=== PATIENT | male | born 1950 | race Caucasian/White ===

== ENCOUNTER 2018-04-21 21:11 | Emergency (ER) | payer MEDICARE, OTHER ==
[2018-04-21 21:19] VITALS: BP 157/102
--- NOTE | 2018-04-21 21:22 | ED Physician Documentation ---
PD HPI HEAD INJURY - Stated complaint Stated Complaint: FACIAL LAC - Chief complaint Chief Complaint: Laceration - History obtained from History obtained from: Patient - History of Present Illness Mechanism of head injury: Blow (he was prying a piece of wood with prybar and it slipped and the bar handle struck him in left cheek. No LOC. Has lac that he felt needed sutures.) Where head injury occurred: Home Timing - onset: Today Location of injury: Left, Front (cheek) Associated symptoms: No: LOC, AMS, Nausea / vomiting Similar symptoms before: Has not had sx before Review of Systems GI: denies: Nausea, Vomiting Neurologic: denies: Altered mental status, Headache PD PAST MEDICAL HISTORY - Past Medical History Cardiovascular: None Respiratory: None Neuro: None - Present Medications Home Medications: Ambulatory Orders Medication Instructions Recorded Confirmed Duloxetine HCl [Cymbalta] 1 cap PO DAILY 04/21/18 04/21/18 Methylphenidate HCl [Ritalin] 20 mg PO BID 04/21/18 04/21/18 - Allergies Allergies/Adverse Reactions: Allergies Allergy/AdvReac Type Severity Reaction Status Date / Time No Known Drug Allergies Allergy Verified 04/21/18 21:19 PD ED PE NORMAL - Vitals Vital signs reviewed: Yes - General General: Alert and oriented X 3, No acute distress, Well developed/nourished - HEENT HEENT: PERRL, EOMI, Other (left cheek with 1.5 cm laceration to fatty tissue layer. No FB nor active bleeding. ) - Neck Neck: Supple, no meningeal sign - Derm Derm: Normal color, Warm and dry - Neuro Neuro: Alert and oriented X 3, No motor deficit, Normal speech Results - Vitals Vitals: Vital Signs - 24 hr 04/21/18 21:16 Temperature 36.2 C L Heart Rate 95 Respiratory 16 Rate Blood Pressure 157/102 H O2 Saturation 95 Oxygen O2 Source Room air Procedures - Laceration (location) left cheek face Length in cm: 1.5 Wound type: Linear, Into subcut fat, Clean Neurovascular status: Sensory intact, Motor intact Anesthesia: Lidocaine 1% with epi Wound Preparation: Irrigated copiously NS Skin layer closure: Nylon, Interrupted, Size #-0 - enter number (6), Sutures - enter # (4) Other: Patient tolerated well, No complications, Neurovascular intact, Tetanus UTD Complexity: Simple Departure - Departure Disposition: 01 Home, Self Care Clinical Impression: Facial laceration Qualifiers: Encounter type: initial encounter Qualified Code(s): S01.81XA - Laceration without foreign body of other part of head, initial encounter Condition: Stable Record reviewed to determine appropriate education?: Yes Instructions: ED Laceration Facial Sutr Tape Comments: It is okay to wash and shower. Clean off the wound twice a day with soap and water, or peroxide and water. Apply some antibiotic ointment to it to keep it moist. Also to watch for signs of infection such as purulence, redness or increasing pain. Return to your primary care or the ER at the specified time for suture removal. Suture removal 6 or 7 days.
[2018-04-21] MEDS ORDERED: LIDOCAINE MPF 1%-EPI 1:200000 30 ML VIAL SUBQ STA (21:27)
== END 2018-04-21 22:02 | disposition home or self-care (01) ==
LOC: ED 21:11
DX: S01.412A Laceration without foreign body of left cheek and temporomandibular area, initial encounter (principal); W22.8XXA Striking against or struck by other objects, initial encounter; Y93.H3 Activity, building and construction; Y92.009 Unspecified place in unspecified non-institutional (private) residence as the place of occurrence of the external cause
CPT/HCPCS: 12011; 99282; 99283

== ENCOUNTER 2018-04-27 20:34 | Emergency (ER) | payer MEDICARE, OTHER ==
[2018-04-27 20:42] VITALS: BP 147/96
[2018-04-27] MEDS ORDERED: BACITRACIN OINT TOP STA (20:52)
--- NOTE | 2018-04-27 20:54 | ED Physician Documentation ---
PD HPI WOUND RECHECK - Stated complaint Stated Complaint: SUTURE REMOVAL - Chief complaint Chief Complaint: General - Histroy obtained from History obtained from: Patient - History of Present Illness Location: Face Timing - onset: How many days ago (5) Pain level max: 0 Pain level now: 0 Associated symptoms: No: Fever, Redness, Swelling, Drainage, Pain Recently seen: Emergency Dept (for suture placement) Review of Systems Constitutional: denies: Fever PD PAST MEDICAL HISTORY - Past Medical History Past Medical History: Yes Cardiovascular: None Respiratory: None Neuro: None Endocrine/Autoimmune: None GI: Other : None HEENT: None Psych: Depression, Anxiety Musculoskeletal: None Derm: None - Past Surgical History Past Surgical History: Yes General: Other - Present Medications Home Medications: Ambulatory Orders Medication Instructions Recorded Confirmed Duloxetine HCl [Cymbalta] 1 cap PO DAILY 04/21/18 04/21/18 Methylphenidate HCl [Ritalin] 20 mg PO BID 04/21/18 04/21/18 - Allergies Allergies/Adverse Reactions: Allergies Allergy/AdvReac Type Severity Reaction Status Date / Time No Known Drug Allergies Allergy Verified 04/27/18 20:41 - Social History Does the pt smoke?: No Smoking Status: Never smoker Does the pt drink ETOH?: Yes Does the pt have substance abuse?: No - Immunizations Immunizations are current?: Yes - POLST Patient has POLST: No PD ED PE NORMAL - Vitals Vital signs reviewed: Yes - General General: Alert and oriented X 3 - HEENT HEENT: Moist mucous membranes, Other (well healed laceration L side of face.) Results - Vitals Vitals: Vital Signs - 24 hr 04/27/18 20:40 Temperature 37 C Heart Rate 79 Respiratory 18 Rate Blood Pressure 147/96 H O2 Saturation 94 Oxygen O2 Source Room air PD MEDICAL DECISION MAKING - ED course Complexity details: considered differential, d/w patient ED course: Sutures removed by the nurse at bedside. Laceration is well-healed. No signs of infection. Patient counseled regarding signs and symptoms for which I believe and urgent re-evaluation would be necessary. Patient with good understanding of and agreement to plan and is comfortable going home at this time This document was made in part using voice recognition software. While efforts are made to proofread this document, sound alike and grammatical errors may occur. Departure - Departure Disposition: 01 Home, Self Care Clinical Impression: Visit for suture removal Condition: Good Instructions: ED Wound Check Sutr Remove No Infec Follow-Up: your,doctor as needed [Other] Comments: Return if you worsen including redness, swelling or drainage from the wound. Discharge Date/Time: 04/27/18 21:04
== END 2018-04-27 21:04 | disposition home or self-care (01) ==
LOC: ED 20:34
DX: Z48.02 Encounter for removal of sutures (principal)
CPT/HCPCS: 99282; A9270

== ENCOUNTER 2018-12-02 23:53 | Emergency (ER) | payer MEDICARE, OTHER ==
[2018-12-03 00:29] VITALS: BP 156/91
--- NOTE | 2018-12-03 01:45 | XRAY Report ---
Reason: swelling, pain, fell of a ladder Procedure Date: 12/03/2018 Accession Number: [id number] / [id number] Procedure: XR - Foot 3 View RT CPT Code: FULL RESULT: EXAM: RIGHT ANKLE RADIOGRAPHY RIGHT FOOT RADIOGRAPHY EXAM DATE: 12/03/2018 01:11 AM. CLINICAL HISTORY: Swelling, pain, fell off a ladder. COMPARISON: FOOT 3 VIEW RT 12/03/2018 1:11 AM. TECHNIQUE: 3 views ankle. 3 views foot FINDINGS: Bones: There is a comminuted calcaneal fracture with decreased calcaneal pitch. Extension into the middle and posterior subtalar joints is noted. Fracture also extends into the calcaneocuboidal joint. Small ossific fragment is seen along the plantar lateral portion of the base of the second metatarsal with extension into the tarsometatarsal joint. Joints: Ankle mortise appears intact on these nonstressed images. Soft Tissues: There is moderate to severe localized soft tissue swelling. IMPRESSION: 1. Comminuted impacted calcaneal fracture with extension into the middle and posterior subtalar joints as well as the calcaneocuboidal joint. 2. Suspect subtle avulsion fracture at the base of the second metatarsal, with equivocal widening of the joint space between the second and third metatarsal base. RADIA
--- NOTE | 2018-12-03 01:45 | XRAY Report ---
Reason: swelling, pain, fell off a ladder. Procedure Date: 12/03/2018 Accession Number: [id number] / [id number] Procedure: XR - Ankle 3 View RT CPT Code: FULL RESULT: EXAM: RIGHT ANKLE RADIOGRAPHY RIGHT FOOT RADIOGRAPHY EXAM DATE: 12/03/2018 01:11 AM. CLINICAL HISTORY: Swelling, pain, fell off a ladder. COMPARISON: FOOT 3 VIEW RT 12/03/2018 1:11 AM. TECHNIQUE: 3 views ankle. 3 views foot FINDINGS: Bones: There is a comminuted calcaneal fracture with decreased calcaneal pitch. Extension into the middle and posterior subtalar joints is noted. Fracture also extends into the calcaneocuboidal joint. Small ossific fragment is seen along the plantar lateral portion of the base of the second metatarsal with extension into the tarsometatarsal joint. Joints: Ankle mortise appears intact on these nonstressed images. Soft Tissues: There is moderate to severe localized soft tissue swelling. IMPRESSION: 1. Comminuted impacted calcaneal fracture with extension into the middle and posterior subtalar joints as well as the calcaneocuboidal joint. 2. Suspect subtle avulsion fracture at the base of the second metatarsal, with equivocal widening of the joint space between the second and third metatarsal base. RADIA
[2018-12-03] MEDS ORDERED: oxyCODONE 5 MG TABLET PO STA (02:16)
--- NOTE | 2018-12-03 02:16 | ED Physician Documentation ---
PD HPI LOWER EXT INJURY - Stated complaint Stated Complaint: FALL OFF LADDER - Chief complaint Chief Complaint: Trauma Ext - History obtained from History obtained from: Patient - History of Present Illness PD HPI LOW EXT INJURY LOCATION: Right, Foot Type of injury: Fall Where injury occurred: Home Timing - onset: Enter time (23:00), Last night Timing - details: Abrupt onset Pain level now: 8 Improved by: Rest Worsened by: Moving, Palpating Associated symptoms: Swelling, Discolored Contributing factors: No: Anticoagulated, Prior ortho surgery Similar symptoms before: Has not had sx before Recently seen: Not recently seen - Additional information Additional information: fell off ladder last night approximately 23:00. He says he was approximately 6 feet up the ladder working on overhead beams, leaned too far to one side and this resulted in the fall. c/o right heel pain and swelling that has steadily increased since the injury; he has no other c/o (no other injuries, and specifically denies back pain, head injury, headache, other extremity pain or injury) Review of Systems Skin: reports: Reviewed and negative Musculoskeletal: reports: Extremity pain (right heel), Extremity swelling (right heel), Pain with weight bearing. denies: Neck pain, Back pain Neurologic: denies: Focal weakness, Numbness, Headache, Head injury, LOC PD PAST MEDICAL HISTORY - Past Medical History Past Medical History: Yes Cardiovascular: None, Hypertension, High cholesterol Respiratory: None Neuro: None Endocrine/Autoimmune: None GI: Other : None HEENT: None Psych: Depression, Anxiety Musculoskeletal: None Derm: None - Past Surgical History Past Surgical History: Yes General: Other - Present Medications Home Medications: Ambulatory Orders Medication Instructions Recorded Confirmed Duloxetine HCl [Cymbalta] 1 cap PO DAILY 04/21/18 12/03/18 Methylphenidate HCl [Ritalin] 20 mg PO BID 04/21/18 12/03/18 Atorvastatin [Lipitor] 10 mg PO DAILY 12/03/18 12/03/18 Lisinopril 5 mg PO DAILY 12/03/18 12/03/18 Omeprazole 20 mg PO DAILY 12/03/18 12/03/18 Oxycodone HCl/Acetaminophen 1 - 2 each PO Q6H PRN #20 tablet 12/03/18 [Percocet 5-325 mg Tablet] - Allergies Allergies/Adverse Reactions: Allergies Allergy/AdvReac Type Severity Reaction Status Date / Time No Known Drug Allergies Allergy Verified 12/03/18 00:28 - Social History Does the pt smoke?: No Smoking Status: Never smoker Does the pt drink ETOH?: Yes Does the pt have substance abuse?: No - Immunizations Immunizations are current?: Yes - POLST Patient has POLST: No PD ED PE NORMAL - Vitals Vital signs reviewed: Yes - General General: Alert and oriented X 3, No acute distress, Well developed/nourished - HEENT HEENT: Atraumatic - Cardiac Cardiac: RRR, No murmur - Respiratory Respiratory: No respiratory distress, Clear bilaterally - Abdomen Abdomen: Soft, Non tender - Back Back: No spinal TTP - Neuro Neuro: Alert and oriented X 3 Eye Opening: Spontaneous Motor: Obeys Commands Verbal: Oriented GCS Score: 15 PD ED PE EXPANDED - Extremities Extremities: Tenderness, Swelling, Bruising Feet visual: 1 - bruising, swelling, tenderness Results - Vitals Vitals: Oxygen O2 Source Room air - Rads (name of study) right ankle xrays Radiology: Prelim report reviewed, See rad report right foot xray Radiology: Prelim report reviewed, See rad report Procedures - Splint (location) Lower extremity right Splint applied by: Tech Type of splint: Fiberglass, Posterior, Stirrup Other: Patient tolerated well, No complications, Neurovascular intact, Other (patient says he already has crutches at home. After placement of splint, patient had increased discomfort at lateral aspect of the foot which rapidly improved with loosening of the HARSHA wrap) PD MEDICAL DECISION MAKING - ED course Complexity details: reviewed results, re-evaluated patient, considered differential, d/w patient ED course: D/W Dr. Smith (on-call orthopedic surgery), including HPI, exam findings, and xray results. He says patient can be splinted and discharged and reevaluated in outpatient setting. Patient is comfortable with this plan. Patient was in no obvious painful distress during ED visit despite xray findings (comminuted calcaneal fracture), and reported adequate pain relief with PO oxycodone Departure - Departure Disposition: 01 Home, Self Care Clinical Impression: Calcaneal fracture Qualifiers: Encounter type: initial encounter Calcaneus location: unspecified portion of calcaneus Fracture type: closed Fracture alignment: nondisplaced Laterality: right Qualified Code(s): S92.001A - Unspecified fracture of right calcaneus, initial encounter for closed fracture Condition: Good Instructions: ED Crutch Walking, ED Fx Foot Follow-Up: Blair Smith MD [Provider Admit Priv/Credential] - Prescriptions: Oxycodone HCl/Acetaminophen [Percocet 5-325 mg Tablet] 1 - 2 each PO Q6H PRN #20 tablet PRN Reason: pain Discharge Date/Time: 12/03/18 03:50
[2018-12-03] MEDS ORDERED: oxyCODONE/ACET 5/325 Prepack 4 PO STA (03:13)
== END 2018-12-03 03:50 | disposition home or self-care (01) ==
LOC: ED 23:53
DX: S92.001A Unspecified fracture of right calcaneus, initial encounter for closed fracture (principal); W11.XXXA Fall on and from ladder, initial encounter; Y93.89 Activity, other specified; Y92.009 Unspecified place in unspecified non-institutional (private) residence as the place of occurrence of the external cause; I10 Essential (primary) hypertension
CPT/HCPCS: 29505; 73610; 73630; 99283; A9270